=== PATIENT | male | born 1960 | race Caucasian/White ===

== ENCOUNTER 2017-01-24 09:45 | Emergency (ER) | payer OTHER ==
[~2017-01-24] VITALS: Ht 190.5 cm; Wt 115.0 kg
[2017-01-24 09:48] VITALS: BP 174/94; PULSE 57; RESP 24; O2SAT 95
[2017-01-24] MEDS ORDERED: METF-495 PO (09:58)
[2017-01-24] MEDS ORDERED: ROSU5TAB9 PO (09:59)
[2017-01-24] MEDS ORDERED: FLAX100038 PO (10:00)
[2017-01-24] MEDS ORDERED: 0.9% Sodium Chloride 1,000 ML IV ONE ×2 (10:07→10:20)
--- NOTE | 2017-01-24 10:07 | ED.REPORT ---
HPI-General Illness Date of Service Jan 24, 2017 ED Provider: Meng Sanders MD 56 y/o male with hx of DM, HTN and testicular cancer (s/p treatment) presents to the ED complaining of a sharp waxing and waning left flank pain, onset 6 hours ago. The pain radiates down to his groin. He denies dysuria, hematuria, chest pain, sob, numbness, tingling and weakness. He has never experienced similar sx before. He denies any history of kidney stones. Nursing Notes Stated Complaint: ABDOMINAL PAIN Chief Complaint: Male Abdominal Pain Nursing Notes Reviewed: Yes Allergies: Uncoded Allergies: NKDA (Allergy, Unknown, 07/31/04) No Known Allergies (Allergy, Unknown, 07/31/04) Scheduled Flaxseed Oil ([place]-3 Flaxseed Oil) Unknown Strength Capsule 1,000 MG PO HS Metformin ER (Metformin ER) 500 Mg Tablet 500 MG PO BID Rosuvastatin Calcium (Rosuvastatin Calcium) 5 Mg Tablet 5 MG PO HS Tamsulosin (Flomax) 0.4 Mg Capsule 0.4 MG PO DAILY Scheduled PRN Hydrocodone-Acetaminophen 5-325 mg (Hydrocodone-Acetaminophen 5-325 mg) 1 Each Tablet 1 TABLET PO Q4H PRN PRN For Pain Ibuprofen (Ibuprofen) 600 Mg Tablet 600 MG PO TID PRN PRN For Pain General Time Seen by MD: 09:47 Chief Complaint Other (left flank pain) Hx Obtained From: Patient Arrived By: Walk-in Onset Occurred: 5 - 8 hours ago Symptom Duration: Since onset Location: : Back (Left flank) Quality: Painful Severity: Current: Severe Severity: Maximum: Severe Recent Healthcare: No recent doctor visit Similar Sx Previous: No Past Medical History Past Medical History testicular cancer (s/p treatment) Reports: Diabetes mellitus Past Surgical History Right testicle removed Smoking History Unknown if Ever Smoker Social History Other Social History: Good social support Ambulatory Status Independent Review of Systems Denies: tingling sensation Full Review of Systems Respiratory: Denies: Shortness of breath Cardiovascular: Denies: Chest pain Male: Reports Flank pain (left), Denies Dysuria, Denies Hematuria Neurologic: Denies: Numbness, Weakness Complete sys rev & neg: except as marked. Physical Exam Vital Signs Vital Signs Date Time Temp Pulse Resp B/P Pulse Ox O2 Delivery O2 Flow Rate FiO2 01/24/17 11:07 62 18 167/88 93 Room Air 01/24/17 10:46 61 18 175/89 95 Nasal Cannula 01/24/17 09:48 35.8 57 24 174/94 95 Room Air Initial VS: Reviewed Head / Eyes: Atraumatic, Normocephalic Neck: Supple, Non-tender, Full range of motion Respiratory: Breath sounds normal, No respiratory distress Cardiovascular: Regular rate & rhythm, Heart sounds normal Extremities: Vascular intact, Neuro intact, No swelling, No tenderness Skin: Warm, Dry, No cyanosis Neurologic: Alert, Oriented, Nonfocal General/Constitutional: Awake, Alert Distress / Hydration: Positive: Distress severe Writihing in pain. Graspning left flank area. Abdomen: Atraumatic, Soft, Non-tender, No guarding, No rebound, No distention Male Genitourinary: Atraumatic Right testical surgically absent. Interpretation & Diagnostics PROCEDURE: CT KUB ([id number]) IMPRESSION: Bilateral nonobstructing renal calculi. Left minimal hydronephrosis and hydroureter down to a 2 mm stone at the ureteral trigone junction. Possible cholesterol stones in the gallbladder because of the heterogeneity of the density of the bile. Dictated by: Palomo Amos M.D. on 01/24/2017 at 10:45 , Dr. Sanders is aware of the kidney/stone findings. Approved by: Palomo Amos M.D. on 01/24/2017 at 10:57 Lab Results Interpretation Result Diagram: 01/24/17 0945 01/24/17 1030 Test 01/24/17 09:45 01/24/17 10:30 White Blood Count 10.6th/mm3 (3.8-10.1) Red Blood Count 4.97mil/mm3 (4.40-5.80) Hemoglobin 15.2g/dL (13.8-17.2) Hematocrit 45.8% (41.0-50.0) Mean Corpuscular Volume 92.2fL (81-100) Mean Corpuscular Hemoglobin 30.6pg (27.0-35.0) Mean Corpuscular Hemoglobin Concent 33.2% (32.0-37.0) Red Cell Distribution Width 13.7% (12.3-15.4) Platelet Count 155bil/L (150-400) Neutrophils (%) (Auto) 74.9% (40-74) Lymphocytes (%) (Auto) 15.3% (14-46) Monocytes (%) (Auto) 8.0% (4-12) Eosinophils (%) (Auto) 1.0% (0-5) Basophils (%) (Auto) 0.3% (0-3) Sodium Level 138mEq/L (134-144) Potassium Level 4.2mEq/L (3.5-5.2) Chloride Level 103mEq/L (97-108) Carbon Dioxide Level 21mmol/L (18-29) Blood Urea Nitrogen 21mg/dL (6-24) Creatinine 1.18mg/dL (0.76-1.27) Estimat Glomerular Filtration Rate 67mL/min (>59) Glucose Level 254mg/dL (60-99) Calcium Level 9.1mg/dL (8.5-10.1) Total Bilirubin 0.4mg/dL (0.0-1.2) Aspartate Amino Transf (AST/SGOT) 21U/L (0-50) Alanine Aminotransferase (ALT/SGPT) 26U/L (0-44) Alkaline Phosphatase 44U/L (25-150) Total Protein 6.4g/dL (6.4-8.4) Albumin 3.9g/dL (3.4-5.0) Lipase 25U/L (13-60) Hold Knott Top Tube Received (Received) Lab Results Interpretation: LABS: CBC = unremarkable CMP = unremarkable, except glucose of 254 Re-Eval/Medical Decision Med Decision/Clinical Course 56 y/o male with hx of DM, HTN and testicular cancer (s/p treatment) presents to the ED complaining of a sharp waxing and waning left flank pain, onset 6 hours ago. The pain radiates down to his groin. He denies dysuria, hematuria, chest pain, sob, numbness, tingling and weakness. He has never experienced similar sx before. He denies any history of kidney stones. In the emergency department the patient appears extremely uncomfortable and is writhing in pain. History and presentation are all very consistent with renal colic. He was treated with IV fluids, Toradol and hydromorphone. He reported dramatic improvement in his pain. CT KUB obtained as below: Bilateral nonobstructing renal calculi. Left minimal hydronephrosis and hydroureter down to a 2 mm stone at the ureteral trigone junction. Possible cholesterol stones in the gallbladder because of the heterogeneity of the density of the bile. Laboratory studies notable as below: CBC = unremarkable CMP = unremarkable, except glucose of 254 No signs of UTI At this time, no evidence of acute surgical intra-abdominal process. No evidence of UTI/infected kidney stone. The size of kidney stone should pass spontaneously. His pain has been well controlled. He will be discharged with Flomax, ibuprofen and [place] for pain control. He has been referred to urology and provided with a urine strainer. At this time, I feel he is appropriate for discharge home. Prior to discharge follow-up and return precautions were reviewed in detail with the patient and his who verbalized understanding and agreement with the plan. The patient was discharged in stable condition. Time of Eval: 11:52 Re-Evaluation/Progress Note: Rechecked pt. Discussed lab results, imaging results, diagnosis and plan to discharge. Pt understands and agrees with the plan. F/U instructions and RTER warning given. All questions addressed. Counseled Regarding: Diagnosis, Lab results, Need for follow-up, When/why to return to ED Discharge & Departure Primary Impression: Renal colic Additional Impressions: Left flank pain Left ureteral stone Hydroureter Disposition: Home Discharge Condition All VS Reviewed: Yes Condition: Stable Patient Instructions: Renal Colic (ED) Additional Instructions: Thank you for seeking care at emergency room. It is difficult for us to make definitive diagnoses in the ED but we believe that you are experiencing a kidney stone. The stone is small enough that it should be able to pass on its own. Please urinate into the urine strainer as directed in order to catch the stone. Our primary goal today in the ED was to evaluate you for any life-threatening conditions. Your evaluation was reassuring. You will be discharged with a prescription for pain medication, please take as directed. Please take Flomax as directed as well to help pass the stone. You should follow-up with the urologist in the next week. Please call to schedule an appointment on Thursday. You should return to the ED immediately if you develop increasing pain, fevers, vomiting, cough, shortness of breath, chest pain, lightheadedness, weakness or any other concerning signs or symptoms. Thank you for letting us partake in your care today. Referrals: Guzman Taylor MD [facility] Attestation Portions of this note were transcribed by Rosmery Acosta. I, , personally performed the history, physical exam and medical decision-making;I reviewed and confirmed the accuracy of the information in the transcribed note. Signed by Alberto Bahena. 01/24/17 11:51 copies to: Guzman Taylor MD; [facility],Meng Veloz MD Jan 24, 2017 10:07 Rosmery Acosta Jan 24, 2017 10:15
[2017-01-24] MEDS ORDERED: Ondansetron 2 mg/mL 2 mL Inj IVPUSH ONE (10:10)
[2017-01-24 10:19] LABS: BASOPHILS % (AUTO) 0.3 % (0-3); Mean Corpuscular Hemoglobin 30.6 pg (27.0-35.0); Mean Corpuscular Volume 92.2 fL (81-100); NEUTROPHILS % (AUTO) 74.9 % (40-74); Platelet Count 155 bil/L (150-400)
[2017-01-24] MEDS ORDERED: HYDROmorphone 1 mg/mL Inj IVPUSH ONE (10:20)
[2017-01-24 10:46] VITALS: BP 175/89; PULSE 61; RESP 18; O2SAT 95
--- NOTE | 2017-01-24 10:59 | DRSVH ---
PROCEDURE: CT KUB ([id number]) INDICATIONS: renal colic TECHNIQUE: Noncontrast 5 mm thick sections acquired from the diaphragms to the symphysis. 5 mm thick coronal an d sagittal reformats were then performed. For radiation dose reduction, the following was used: aut omated exposure control, adjustment of mA and/or kV according to patient size. COMPARISON: None. FINDINGS: Image quality: Excellent. Lung bases: Lung bases are clear. Heart size is normal. Urinary system: Both kidneys are normal in size. There is one right and 3 left renal calculi nonobst ructing. There is a very mild left hydronephrosis and hydroureter down to a 2 mm stone at the uretera l trigone junction. The right ureter is normal in size. Bladder wall thickness is normal; no other c alcified bladder stones. There is a 3.1 cm exophytic cyst on the left kidney. Other solid organs: Liver and spleen are normal in size. Gallbladder is slightly heterogeneous inco ntinence suggesting the possibility of small cholesterol stones.. Pancreas is normal in contours. N o adrenal nodules. Peritoneum and bowel: There is a large gastric diverticulum near the fundus of the clinical significa nce. Unenhanced bowel loops demonstrate normal wall thickness and caliber. No free fluid or air. Nodes and vessels: No retroperitoneal or mesenteric adenopathy by size criteria. Aorta and inferior vena cava are normal in caliber. Abdominal wall: No ventral hernias. Pelvis: No free pelvic fluid. No inguinal hernias or adenopathy. Bones: No suspicious bony lesions. No vertebral body compression fractures. IMPRESSION: Bilateral nonobstructing renal calculi. Left minimal hydronephrosis and hydroureter down to a 2 mm stone at the ureteral trigone junction. Possible cholesterol stones in the gallbladder because of the heterogeneity of the density of the jony e. Dictated by: Palomo Amos M.D. on 01/24/2017 at 10:45 , Dr. Sanders is aware of the kidney/ston e findings. Approved by: Palomo Amos M.D. on 01/24/2017 at 10:57
[2017-01-24 11:07] VITALS: BP 167/88; PULSE 62; RESP 18; O2SAT 93
[2017-01-24] MEDS ORDERED: IBUP-1827 PO (11:19)
[2017-01-24] MEDS ORDERED: TAMS0.4C98 PO (11:19)
[2017-01-24] MEDS ORDERED: HYDR-4003 PO (11:19)
[2017-01-24 12:10] VITALS: BP 148/68; PULSE 77; RESP 20; O2SAT 95
== END 2017-01-24 12:11 | disposition home or self-care (01) ==
LOC: SED 09:45
DX: N23 Unspecified renal colic (principal); N13.2 Hydronephrosis with renal and ureteral calculous obstruction; I10 Essential (primary) hypertension; E11.9 Type 2 diabetes mellitus without complications; Z79.84 Long term (current) use of oral hypoglycemic drugs
CPT/HCPCS: 36415; 74176; 80053; 83690; 85025; 96361; 96374; 96375; 99285; J1170; J1885; J2405; J7030

== ENCOUNTER 2017-03-27 03:10 | Emergency (ER) | payer OTHER ==
[~2017-03-27 03:10] MED LIST: FLAX100038 PO; HYDR-4003 PO; IBUP-1827 PO; METF-495 PO; ROSU5TAB9 PO; TAMS0.4C98 PO
[2017-03-27 03:23] VITALS: BP 157/78; PULSE 59; RESP 16; O2SAT 96
[2017-03-27 03:46] LABS: APPEARANCE,URINE CLEAR (CLEAR,HAZY); COLOR,URINE YELLOW (YELLOW); OCCULT BLOOD,URINE NEGATIVE (NEGATIVE); PH,URINE 5.5 (5.0-8.0); UROBILINOGEN,URINE NORMAL (NORMAL)
[2017-03-27] MEDS ORDERED: Ondansetron 2 mg/mL 2 mL Inj IVPUSH ONE (03:55)
--- NOTE | 2017-03-27 04:02 | ED.REPORT ---
HPI-Abd Pain M 40 and Over Date of Service Mar 27, 2017 ED Provider: Artemio Blair MD Patient is a 56 year old male with a history of nephrolithiasis, hypertension, and diabetes mellitus complaining of right-sided flank pain. The pain began suddenly at 02:00 this morning. Additional symptoms include nausea and vomiting. He denies hematuria, diarrhea, constipation, or hematochezia. He reports having a nephrolithiasis on the left side previously that had previously passed on its own. Nursing Notes Stated Complaint: KIDNEY PAIN Chief Complaint: Male Abdominal Pain Nursing Notes Reviewed: Yes Allergies: Uncoded Allergies: NKDA (Allergy, Unknown, 07/31/04) No Known Allergies (Allergy, Unknown, 07/31/04) Scheduled Flaxseed Oil ([place]-3 Flaxseed Oil) Unknown Strength Capsule 1,000 MG PO HS Metformin ER (Metformin ER) 500 Mg Tablet 500 MG PO BID Rosuvastatin Calcium (Rosuvastatin Calcium) 5 Mg Tablet 5 MG PO HS Tamsulosin (Flomax) 0.4 Mg Capsule 0.4 MG PO DAILY Scheduled PRN Hydrocodone-Acetaminophen 5-325 mg (Hydrocodone-Acetaminophen 5-325 mg) 1 Each Tablet 1 TABLET PO Q4H PRN PRN For Pain Hydrocodone-Acetaminophen 5-325 mg (Hydrocodone-Acetaminophen 5-325 mg) 1 Each Tablet 1-2 TABLET PO Q4H PRN PRN For Pain Ibuprofen (Ibuprofen) 600 Mg Tablet 600 MG PO TID PRN PRN For Pain Ondansetron ODT (Ondansetron ODT) 8 Mg Tab.rapdis 8 MG PO QID PRN PRN For Nausea General Time Seen by MD: 04:02 Chief Complaint Flank pain right Hx Obtained From: Patient Arrived By: Walk-in Sudden in Onset?: Yes Onset Occurred: 1 - 4 hours ago Symptom Duration: Since onset Location: : Flank right Quality: Painful Recent Healthcare: Recent doctor visit Similar Sx Previous: Yes Risk Factors )( AAA Risk Stratification Hypertension Risk factors reviewed Past Medical History Past Medical History testicular cancer (s/p treatment) nephrolithiasis Reports: Diabetes mellitus, Hypertension Past Surgical History Right testicle removed Social History Alcohol Use: "Social" Other Social History: Smokeless tobacco Ambulatory Status Independent Review of Systems Respiratory: Denies: Non-productive cough, Prod cough, clear, Shortness of breath GI: Reports: Nausea, Vomiting, Denies: Bloody/tarry stool, Constipation, Diarrhea, Hematochezia Male: Reports Flank pain, Denies Hematuria Musculoskeletal: Denies: Back pain Complete sys rev & neg: except as marked. Physical Exam Initial Vital Signs Vital Signs (First) Date Time Temp Pulse Resp B/P Pulse Ox O2 Delivery O2 Flow Rate FiO2 03/27/17 03:23 36.5 59 16 157/78 96 Room Air Initial VS: Reviewed, Vital signs normal Head / Eyes: Atraumatic, Normocephalic Neck: Supple, Full range of motion Neurologic: Alert, Oriented, Nonfocal Psychiatric: Mood/affect normal, Behavior normal, Normal thought content General/Constitutional: Awake, Alert Obvious discomfort Respiratory / Chest: Atraumatic, Breath sounds NL, Breath sounds = bilat, No respiratory distress Cardiovascular: Heart rate NL, Regular rhythm, Heart sounds NL No peripheral edema Abdomen: Atraumatic, Soft, Non-tender Back: Atraumatic, Full range of motion Flank / Spine / Paraspinal: Positive: Flank tender R Skin: Warm, Dry Pale and diaphoretic Interpretation & Diagnostics Lab Results Interpretation Result Diagram: 03/27/17 0435 03/27/17 0435 Test 03/27/17 03:10 03/27/17 03:20 03/27/17 04:35 Urine Color Yellow (YELLOW) Urine Appearance Clear (CLEAR,HAZY) Urine pH 5.5 (5.0-8.0) Urine Specific [place] 1.030 (1.003-1.035) Urine Protein Negativemg/dL (NEG,TRACE) Urine Glucose (UA) Negativemg/dL (NEGATIVE) Urine Ketones Negativemg/dL (NEGATIVE) Urine Occult Blood Negative (NEGATIVE) Urine Nitrite Negative (NEGATIVE) Urine Bilirubin Negative (NEGATIVE) Urine Urobilinogen Normalmg/dL (NORMAL) Urine Leukocyte Esterase Negative (NEGATIVE) Urine RBC 0-2/hpf (0-2) Urine WBC 0-5/hpf (0-5) Urine Epithelial Cells Occasional/hpf (NONE-MOD) Urine Crystals None seen (NONE SEEN) Urine Bacteria None/hpf (NONE-FEW) Urine Hyaline Casts None/lpf (NONE) Urine Granular Casts None seen (NONE SEEN) Urine Waxy Casts None seen (NONE SEEN) Urine Red Blood Cell Casts None seen (NONE SEEN) Urine White Blood Cell Casts None seen (NONE SEEN) Urine Mucus Present (None Seen) Urine Trichomonas None seen (NONE SEEN) Urine Yeast None (NONE SEEN) Urinalysis Comment None Urine Culture Reflexed Not indicated Hold Urine Received (Received) White Blood Count 9.3th/mm3 (3.8-10.1) Red Blood Count 4.48mil/mm3 (4.40-5.80) Hemoglobin 13.5g/dL (13.8-17.2) Hematocrit 40.8% (41.0-50.0) Mean Corpuscular Volume 91.1fL (81-100) Mean Corpuscular Hemoglobin 30.1pg (27.0-35.0) Mean Corpuscular Hemoglobin Concent 33.1% (32.0-37.0) Red Cell Distribution Width 13.4% (12.3-15.4) Platelet Count 171bil/L (150-400) Neutrophils (%) (Auto) 78.2% (40-74) Lymphocytes (%) (Auto) 11.9% (14-46) Monocytes (%) (Auto) 7.9% (4-12) Eosinophils (%) (Auto) 1.5% (0-5) Basophils (%) (Auto) 0.2% (0-3) Prothrombin Time 10.0sec (8.1-12.5) Prothromb Time International Ratio 0.94ratio Sodium Level 139mEq/L (134-144) Potassium Level 4.2mEq/L (3.5-5.2) Chloride Level 103mEq/L (97-108) Carbon Dioxide Level 22mmol/L (18-29) Blood Urea Nitrogen 29mg/dL (6-24) Creatinine 1.31mg/dL (0.76-1.27) Estimat Glomerular Filtration Rate 60mL/min (>59) Glucose Level 228mg/dL (60-99) Lactic Acid Level 1.4mmol/L (0.4-2.0) Calcium Level 9.3mg/dL (8.5-10.1) Magnesium Level 1.7mg/dL (1.6-2.6) Total Bilirubin 0.3mg/dL (0.0-1.2) Aspartate Amino Transf (AST/SGOT) 20U/L (0-50) Alanine Aminotransferase (ALT/SGPT) 25U/L (0-44) Alkaline Phosphatase 46U/L (25-150) Total Protein 6.4g/dL (6.4-8.4) Albumin 4.2g/dL (3.4-5.0) Lipase 28U/L (13-60) ECG Interpretation ECG Interpretation: normal sinus rhythm with a rate of 61 IVCS, consider atypical RBBB nonspecific T abnormalities, lateral leads Time: 04:18 Interpreted by: ED physician CT Abd / Pelvis Interpretation Conclusion: Right hydronephrosis with a 2mm stone near the right ureterovesical junction. Mild perivesical stranding which can be seen with cystitis. Clinical correlation is requested. Diverticulosis. Study type: Abdominal CT IV contrast Interpretation / Wet Read by: Interpret - Radiologist Re-Eval/Medical Decision Med Decision/Clinical Course 56-year-old male with prior kidney stone presents with right flank pain and is found to have a 2 mm stone at the UVJ. This apparently is already passed, as he is now pain-free. Home with a small supply of Vicodin and Zofran if needed. Follow-up already planned with Dr. Guadalupe. Hold metformin for seventy-two hours. Return for any immediate issues. Continue Fluid hydration. Source of Hx: Old records Time of Eval: 05:59 Patient Status: Condition improved Re-Evaluation/Progress Note: Patient rechecked. Discussed plan for discharge. Patient understands and agrees with plan. F/U instructions and RTER warnings given. All questions addressed at this time. Counseled Regarding: Diagnosis, Lab results, Need for follow-up, When/why to return to ED Discharge & Departure Primary Impression: Right nephrolithiasis Additional Impression: Renal colic Disposition: Home Vital Signs - All Vital Signs Date Time Temp Pulse Resp B/P Pulse Ox O2 Delivery O2 Flow Rate FiO2 03/27/17 06:12 36.6 62 16 140/72 98 Room Air 03/27/17 03:23 36.5 59 16 157/78 96 Room Air )( All Prior VS Reviewed: Yes Condition: Stable Patient Instructions: Renal Colic (ED) Additional Instructions: Review have a 2 mm stone, that you have probably passed already. Call Dr. Guadalupe's office this morning and follow-up with urology. Do not take your metformin for three days. It can cause complications in the presence of the CT dye. Drink plenty of fluids and stay well-hydrated. Return if any immediate issues. Zofran if needed for nausea up to four times daily. Vicodin if needed for pain up to four times daily. Referrals: Guzman Taylor MD (PCP) Scribe Attestation Portions of this note were transcribed by Jazz Maza and Todd Rodriguez. I, Dr. Blair, personally performed the history, physical exam and medical decision-making; I reviewed and confirmed the accuracy of the information in the transcribed note. copies to: Guzman Taylor MD, Christopher W MD Mar 27, 2017 04:02 Jazz Maza Mar 27, 2017 04:11 TODD RODRIGUEZ Mar 27, 2017 05:18
[2017-03-27] MEDS ORDERED: HYDROmorphone 1 mg/mL Inj IVPUSH PRN (04:05)
[2017-03-27 04:40] LABS: BASOPHILS % (AUTO) 0.2 % (0-3); EOSINOPHILS % (AUTO) 1.5 % (0-5); MONOCYTES % (AUTO) 7.9 % (4-12); Mean Corpuscular Hemoglobin 30.1 pg (27.0-35.0); Mean Corpuscular Volume 91.1 fL (81-100); NEUTROPHILS % (AUTO) 78.2 % (40-74); Platelet Count 171 bil/L (150-400)
[2017-03-27 04:57] LABS: INR 0.94 ratio
[2017-03-27 05:02] LABS: Magnesium 1.7 mg/dL (1.6-2.6)
[2017-03-27] MEDS ORDERED: HYDR-4003 PO (06:04)
[2017-03-27] MEDS ORDERED: ONDA8TAB10 PO (06:04)
[2017-03-27 06:12] VITALS: BP 140/72; PULSE 62; RESP 16; O2SAT 98
--- NOTE | 2017-03-27 13:04 | DRSVH ---
PROCEDURE: CT ABDOMEN AND PELVIS WITH CONTRAST ([id number]) INDICATIONS: rt flank and abdo pain TECHNIQUE: After the administration of intravenous contrast, 5 mm thick sections acquired from the diaphragm to the symphysis. 5 mm coronal and sagittal reformats were acquired. For radiation dose reduction, the following was used: automated exposure control, adjustment of mA and/or kV according to patient siz e. Final report (concordant with preliminary interpretation) was delayed due to technical PACS issue s. COMPARISON: None. FINDINGS: Image quality: Excellent. ABDOMEN: Lung bases: There is dependent bibasilar scarring/atelectasis. Solid organs: Liver and spleen are normal in size and enhancement. Gallbladder negative. Biliary s ystem is non dilated. Pancreas enhances normally. No adrenal nodules. Exophytic left renal cyst is seen. There is bilateral perinephric stranding, technically indeterminate. Additional presumed small er left renal cyst on image 48 although too small to characters definitively. Mild right hydronephros is related to a 2 mm calculus in the distal right ureter near the ureterovesical junction. No bladder calculi identified. Peritoneum and bowel: Bowel loops demonstrate normal wall thickness and caliber. No free fluid or a ir. Appendix appears normal. Incidental scattered colonic diverticula. The rectum is decompressed ot herwise unremarkable. Nodes and vessels: No retroperitoneal or mesenteric adenopathy by size criteria. Aorta and inferior vena cava are normal in size. Miscellaneous: No ventral hernias. PELVIS: Genitourinary: Bladder wall thickness is normal. Miscellaneous: Fat-containing left inguinal hernia Bones: No suspicious bony lesions. Partial left-sided sacralization of L5, chronic. No vertebral chela dy compression fractures. IMPRESSION: Minimally obstructive 2 mm calculus at the right ureterovesical junction. Normal appendix. Dictated by: Roni Zepeda M.D. on 03/27/2017 at 9:03 Approved by: Roni Zepeda M.D. on 03/27/2017 at 13:02
== END 2017-03-27 06:21 | disposition home or self-care (01) ==
LOC: SED 03:10
DX: N20.0 Calculus of kidney (principal); I10 Essential (primary) hypertension; E11.9 Type 2 diabetes mellitus without complications; Z79.84 Long term (current) use of oral hypoglycemic drugs
CPT/HCPCS: 36415; 74177; 80053; 81000; 83605; 83690; 83735; 85025; 85610; 93005; 96361; 96374; 96375; 99285; J1885; J2405; Q9967